=== PATIENT | male | born 1935 | race Caucasian/White ===

== ENCOUNTER 2018-09-27 08:21 | Emergency (ER) | payer MEDICARE, OTHER ==
[2018-09-27] MEDS ORDERED: LIDOCAINE 5% (700 MG) TRANSDERMAL ADH..PATCH TP ONE (09:42)
[2018-09-27] MEDS ORDERED: ACETAMINOPHEN 325 MG TABLET PO ONE (09:42)
--- NOTE | 2018-09-27 09:55 | RADIOLOGY REPORT (SQ) ---
EXAM DESCRIPTION: SACRUM AND COCCYX COMPLETED DATE/TIME: 09/27/2018 9:41 am REASON FOR STUDY: right hip pain COMPARISON: None. NUMBER OF VIEWS: Three views. TECHNIQUE: AP, lateral, and tilt views of the sacrum and coccyx. LIMITATIONS: None. FINDINGS: MINERALIZATION: Normal. BONES: No acute fracture or dislocation. No worrisome bone lesions. SOFT TISSUES: No soft tissue swelling. No foreign body. OTHER: No other significant finding. IMPRESSION: NEGATIVE STUDY OF THE SACRUM AND COCCYX. TECHNICAL DOCUMENTATION: JOB ID: [id number] [employer]- All Rights Reserved Reading location - IP/workstation name: [email or web address]
--- NOTE | 2018-09-27 10:02 | RADIOLOGY REPORT (SQ) ---
EXAM DESCRIPTION: HIP RIGHT AP/LATERAL COMPLETED DATE/TIME: 09/27/2018 9:41 am REASON FOR STUDY: right hip pain COMPARISON: 09/27/2018 sacrum and coccyx NUMBER OF VIEWS: Two views. TECHNIQUE: AP pelvis and additional frog-leg view of the right hip. LIMITATIONS: None. FINDINGS: MINERALIZATION: Normal. RIGHT HIP: No fracture or dislocation. No worrisome bone lesions. Right hip joint space narrowing wi th bony spurring. LEFT HIP: No fracture or dislocation. No worrisome bone lesions. Left hip joint space narowing with bony spurring PUBIS AND ISCHIUM: No fracture. PELVIS: No fracture. SACRUM: No fracture or dislocation. No worrisome bone lesions. LOWER LUMBAR SPINE: Disc space loss of height at L4-5. 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 OTHER: No other significant finding. IMPRESSION: No acute changes TECHNICAL DOCUMENTATION: JOB ID: [id number] [employer]- All Rights Reserved Reading location - IP/workstation name: [email or web address]
--- NOTE | 2018-09-27 10:46 | ER Document Report ---
ED General - General Chief Complaint: Hip Pain Stated Complaint: RIGHT HIP PAIN Time Seen by Provider: 09/27/18 08:56 Primary Care Provider: FELICITAS BUI MD [Primary Care Provider] - Follow up in 3-5 days - HPI Patient complains to provider of: Right leg pain Notes: Patient coming in for chronic leg pain that is acutely exacerbated in the last 12 hours. Patient is workup significant pain underneath his right gluteus montse of the beginning of the posterior thigh. Patient denies any trauma denies any fever chills patient states pain does travel down to the middle of the back of the leg. Patient denies any swelling patient states no increased physical activity last 24 hours. - Related Data Allergies/Adverse Reactions: No Known Drug Allergies Allergy (Verified 09/27/18 08:23) Past Medical History - Social History Smoking Status: Unknown if Ever Smoked Chew tobacco use (# tins/day): No Frequency of alcohol use: None Drug Abuse: None Family History: Reviewed & Not Pertinent Patient has suicidal ideation: No Patient has homicidal ideation: No Renal/ Medical History: Denies: Hx Peritoneal Dialysis Past Surgical History: Reports: Hx Tonsillectomy - Immunizations Hx Diphtheria, Pertussis, Tetanus Vaccination: Yes Review of Systems - Review of Systems Constitutional: No symptoms reported EENT: No symptoms reported Cardiovascular: No symptoms reported Respiratory: No symptoms reported Gastrointestinal: No symptoms reported Genitourinary: No symptoms reported Male Genitourinary: No symptoms reported Musculoskeletal: Other - Leg pain Skin: No symptoms reported Hematologic/Lymphatic: No symptoms reported Neurological/Psychological: No symptoms reported -: Yes All other systems reviewed and negative Physical Exam - Vital signs Vitals: Temp Pulse Resp BP Pulse Ox 97.6 F 69 16 124/50 L 98 09/27/18 08:30 09/27/18 08:30 09/27/18 08:30 09/27/18 08:30 09/27/18 08:30 Interpretation: Normal - General General appearance: Appears well, Alert - HEENT Head: Normocephalic, Atraumatic Eyes: Normal Pupils: PERRL - Respiratory Respiratory status: No respiratory distress Chest status: Nontender Breath sounds: Normal Chest palpation: Normal - Cardiovascular Rhythm: Regular Heart sounds: Normal auscultation Murmur: No - Abdominal Inspection: Normal Distension: No distension Bowel sounds: Normal Tenderness: Nontender Organomegaly: No organomegaly - Back Back: Normal, Nontender - Extremities General upper extremity: Normal inspection, Nontender, Normal color, Normal ROM, Normal temperature General lower extremity: Normal inspection, Normal color, Normal ROM, Normal temperature, Normal weight bearing, Other - Left legs normal examination of the right leg shows a tender area underneath the right gluteus montse there is no bruising no ecchymosis no signs of abscess or trauma. Patient has pinpoint midline tenderness underneath the right gluteus montse no radiation down the leg no exacerbation of pain upon palpation of the piriformis muscle underneath the gluteus montse on the right side. No: Marcy's sign - Neurological Neuro grossly intact: Yes Cognition: Normal Orientation: AAOx4 Nicola Coma Scale Eye Opening: Spontaneous Nicola Coma Scale Verbal: Oriented Nicola Coma Scale Motor: Obeys Commands [place] Coma Scale Total: 15 Speech: Normal Motor strength normal: LUE, RUE, LLE, RLE Sensory: Normal - Psychological Associated symptoms: Normal affect, Normal mood - Skin Skin Temperature: Warm Skin Moisture: Dry Skin Color: Normal Course - Re-evaluation Re-evalutation: 09/27/18 15:10 X-rays performed Doppler is negative for any signs of acute fracture. More likely patient has a muscle strain and I think the patient has any sciatica at this time is that there is no symptoms reproduced upon palpation of the gluteus montse only on her knees. Patient will be treated with Tylenol and Lidoderm patches which she was given here in ER states improvement of his pain. - Vital Signs Vital signs: Temp Pulse Resp BP Pulse Ox 98.2 F 67 18 120/53 L 98 09/27/18 11:07 09/27/18 11:07 09/27/18 11:07 09/27/18 11:07 09/27/18 11:07 Discharge - Discharge Clinical Impression: Leg pain Qualifiers: Laterality: right Qualified Code(s): M79.604 - Pain in right leg Condition: Good Disposition: HOME, SELF-CARE Instructions: Leg Pain Nonspecific ([facility]) Additional Instructions: Your x-rays today do not show any signs of fracture do believe your pain is from a pulled muscle recommend ice heat lidocaine patches that are available [id number] to help out with your pain Tylenol to help out with your pain I will give you a prescription for Voltaren gel which is an anti-inflammatory gel this may be expensive if it is not within your back but it is not needed for you to get better I would recommend rest and follow-up with your primary care physician in 1-2 weeks. Prescriptions: Diclofenac Sodium [Voltaren] 100 gm TP BID #1 tub Referrals: FELICITAS BUI MD [Primary Care Provider] - Follow up in 3-5 days
[2018-09-27 11:11] VITALS: BP 120/53
== END 2018-09-27 11:11 | disposition home or self-care (01) ==
LOC: ER 08:21
DX: M79.651 Pain in right thigh (principal); G89.29 Other chronic pain
CPT/HCPCS: 99283; 72220; 73502; A9270

== ENCOUNTER 2020-08-01 08:12 | Emergency (ER) | payer MEDICARE, OTHER ==
[2020-08-01 10:28] LABS: ABSOLUTE BASOPHILS # (AUTO) 0.1 10^3/uL (0.0-0.2); ABSOLUTE EOSINOPHILS # (AUTO) 0.1 10^3/uL (0.0-0.6); ABSOLUTE LYMPHOCYTES (AUTO) 0.7 10^3/uL (0.5-4.7); ABSOLUTE MONOCYTES (AUTO) 0.7 10^3/uL (0.1-1.4); ABSOLUTE NEUT (AUTO) 2.9 10^3/uL (1.7-8.2); BASOPHILS % (AUTO) 2.5 % (0-2); EOSINOPHILS % (AUTO) 2.3 % (0-6); HEMOGLOBIN 13.3 g/dL (13.5-17.0); MEAN CORPUSCULAR HEMOGLOBIN 32.1 pg (27.0-33.4); MEAN CORPUSCULAR HGB CONC 33.3 g/dL (32.0-36.0); MEAN CORPUSCULAR VOLUME 96 fl (80-97); MONOCYTES % (AUTO) 14.9 % (3-13); PLATELET COUNT 199 10^3/uL (150-450); RED BLOOD COUNT 4.16 10^6/uL (4.35-5.55); RED CELL DISTRIBUTION WIDTH 13.3 % (11.5-14.0); SEGMENTED NEUTROPHILS % (AUTO) 64.3 % (42-78); TOTAL CELLS COUNTED % (AUTO) 100 %; WHITE BLOOD COUNT 4.5 10^3/uL (4.0-10.5)
[2020-08-01 10:52] LABS: ALBUMIN 3.9 g/dL (3.5-5.0); ALKALINE PHOSPHATASE 58 U/L (38-126); ASPARTATE AMINO TRANSFERASE 34 U/L (17-59); BILIRUBIN,DIRECT 0.1 mg/dL (0.0-0.4); BILIRUBIN,TOTAL 0.5 mg/dL (0.2-1.3); BLOOD UREA NITROGEN 22 mg/dL (7-20); CALCIUM 9.4 mg/dL (8.4-10.2); CARBON DIOXIDE 32 mmol/L (22-30); CHLORIDE 103 mmol/L (98-107); GLUCOSE 82 mg/dL (75-110); POTASSIUM 4.7 mmol/L (3.6-5.0); TOTAL PROTEIN 6.3 g/dL (6.3-8.2)
[2020-08-01 10:57] LABS: ANION GAP 4 (5-19)
--- NOTE | 2020-08-01 11:03 | ER Document Report ---
ED Extremity Problem, Upper - General Chief Complaint: Skin Problem Stated Complaint: LEFT ARM PAIN Time Seen by Provider: 08/01/20 08:55 Primary Care Provider: FELICITAS BUI MD [Primary Care Provider] - Follow up in 3-5 days Mode of Arrival: Ambulatory Information source: Patient Notes: Patient states that he scraped and punctured his left forearm on a pedro thorn 2 weeks ago. Patient states that he has had swelling to the puncture wound for the past week. Patient denies any fever or drainage. Patient denies any significant tenderness. TRAVEL OUTSIDE OF THE [place] IN LAST 30 DAYS: No - HPI Patient complains to provider of: Swelling, Forearm Onset: Last week Where: [place]doors Quality of pain: No pain Pain Level: Denies - Related Data Allergies/Adverse Reactions: No Known Drug Allergies Allergy (Verified 08/01/20 08:50) Past Medical History - General Information source: Patient - Social History Smoking Status: Never Smoker Frequency of alcohol use: None Drug Abuse: None Lives with: Spouse/Significant other Family History: Reviewed & Not Pertinent - Past Medical History Cardiac Medical History: Reports: Hx Atrial Fibrillation Renal/ Medical History: Reports: Hx Benign Prostatic Hyperplasia. 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 denies: Fever EENT: No symptoms reported Cardiovascular: No symptoms reported Respiratory: No symptoms reported Gastrointestinal: No symptoms reported Genitourinary: No symptoms reported Male Genitourinary: No symptoms reported Musculoskeletal: Other - Swelling to the left forearm Skin: Other - Puncture wound from Pedro thorn Hematologic/Lymphatic: No symptoms reported Neurological/Psychological: No symptoms reported Physical Exam - Vital signs Vitals: Temp Pulse Resp BP Pulse Ox 97.8 F 68 18 147/47 H 97 08/01/20 08:18 08/01/20 08:18 08/01/20 08:18 08/01/20 08:18 08/01/20 08:18 - General General appearance: Appears well, Alert In distress: None - HEENT Head: Normocephalic, Atraumatic Eyes: Normal Conjunctiva: Normal Nasal: Normal Mouth/Lips: Normal Mucous membranes: Normal Neck: Normal, Supple. No: Lymphadenopathy - Respiratory Respiratory status: No respiratory distress Chest status: Nontender Breath sounds: Normal. No: Rales, Rhonchi, Stridor, Wheezing Chest palpation: Normal - Cardiovascular Rhythm: Regular Heart sounds: S1 appreciated, S2 appreciated Pulses: Normal: Radial - Extremities General upper extremity: Nontender, Normal ROM General lower extremity: Normal inspection, Normal ROM Forearm: Other - Patient with 2 healing abrasion/puncture wound to proximal third of left forearm, patient with 1.5 cm mobile, fluctuant lesion, no overlying erythema. No: Tender - Neurological Neuro grossly intact: Yes Cognition: Normal Nicola Coma Scale Eye Opening: Spontaneous Nicola Coma Scale Verbal: Oriented Nicola Coma Scale Motor: Obeys Commands [place] Coma Scale Total: 15 - Psychological Associated symptoms: Normal affect, Normal mood - Skin Skin Temperature: Warm Skin Moisture: Dry Skin Color: Normal Skin irregularity: other - Mobile 1.5 cm lesion underlying healing abrasion/PW Course - Re-evaluation Re-evalutation: 08/01/20 11:00 Patient with a mobile palpable lesion underlying healing puncture wound to proximal left forearm, incision and drainage procedure performed, no foreign body identified. No purulent drainage noted. 08/01/20 11:[address] patient on antifungal medication given concern about pedro thorn puncture wound to forearm. Patient advised that he will need to follow-up with his primary doctor as he may need to be on the antifungal medication for some time and may need additional lab work while he is taking this medication. - Vital Signs Vital signs: Temp Pulse Resp BP Pulse Ox 98.2 F 60 14 119/66 99 08/01/20 11:21 08/01/20 11:21 08/01/20 11:21 08/01/20 11:21 08/01/20 11:21 - Laboratory Result Diagrams: 08/01/20 10:10 08/01/20 10:10 Laboratory results interpreted by me: 08/01/20 08/01/20 10:10 10:10 RBC 4.16 L Hgb 13.3 L Love % (Auto) 14.9 H Baso % (Auto) 2.5 H Carbon Dioxide 32 H Anion Gap 4 L BUN 22 H 08/01/20 11:00 Labs- All tests 24 hr 08/01/20 08/01/20 10:10 10:10 WBC 4.5 RBC 4.16 L Hgb 13.3 L Hct 40.0 MCV 96 MCH 32.1 MCHC 33.3 RDW 13.3 Plt Count 199 Lymph % (Auto) 16.0 Love % (Auto) 14.9 H Eos % (Auto) 2.3 Baso % (Auto) 2.5 H Absolute Neuts (auto) 2.9 Absolute Lymphs (auto) 0.7 Absolute Monos (auto) 0.7 Absolute Eos (auto) 0.1 Absolute Basos (auto) 0.1 Seg Neutrophils % 64.3 Sodium 138.9 Potassium 4.7 Chloride 103 Carbon Dioxide 32 H Anion Gap 4 L BUN 22 H Creatinine 0.92 Est GFR ( Amer) > 60 Est GFR (MDRD) Non-Af > 60 Glucose 82 Calcium 9.4 Total Bilirubin 0.5 Direct Bilirubin 0.1 Neonat Total Bilirubin Not Reportable Neonat Direct Bilirubin Not Reportable Neonat Indirect Bili Not Reportable AST 34 ALT 20 Alkaline Phosphatase 58 Total Protein 6.3 Albumin 3.9 Discharge - Discharge Clinical Impression: Left forearm pedro thorn puncture wound Condition: Stable Disposition: HOME, SELF-CARE Instructions: Post Incision and Drainage Additional Instructions: Return immediately for any new or worsening symptoms Followup with your primary care provider, call tomorrow to make a followup appointment Your provider may need to extend your course of antifungal medication, and may need to recheck laboratory studies while taking this medication. Contact your office tomorrow to set up a follow-up appointment. Prescriptions: Itraconazole 100 mg PO DAILY #30 capsule Referrals: FELICITAS BUI MD [Primary Care Provider] - Follow up in 3-5 days
[2020-08-01 11:23] VITALS: BP 119/66
== END 2020-08-01 11:21 | disposition home or self-care (01) ==
LOC: ER 08:12
DX: S51.832A Puncture wound without foreign body of left forearm, initial encounter (principal); M79.602 Pain in left arm; W60.XXXA Contact with nonvenomous plant thorns and spines and sharp leaves, initial encounter
CPT/HCPCS: 36415; 80053; 85025; 99283